=== PATIENT | male | born 1995 | race Caucasian/White ===

== ENCOUNTER → 2021-07-04 | Emergency (ER) | payer BC ==
[~2021-07-04] VITALS: Ht 172.7 cm; Wt 91.6 kg
[~2021-07-04] MED LIST: HYDROCODONE/APAP 5/325MG TABLET ONE; HYDROCODONE/APAP 5/325MG TABLET PO ONE; NAPR-1009 PO; ONDANSETRON 4 MG TAB.RAPDIS ONE; ONDANSETRON 4 MG TAB.RAPDIS SL ONE
--- NOTE | 2021-07-04 07:35 | NUR ---
BIBSELF C/O MID BACK PAIN S/P FELL OFF 3 STAIRS. -KO. AMBULATORY WITH BEARABLE PAIN. [id number]
--- NOTE | 2021-07-04 08:11 | NUR ---
DR TERAN AT BEDSIDE FOR EVAL
--- NOTE | 2021-07-04 08:23 | NUR ---
PT IS WHEELED TO CT SCAN VIA [facility].
--- NOTE | 2021-07-04 10:23 | NUR ---
Patient discharged to home in stable condition. Written and verbal after care instructions given. Patient verbalizes understanding of instruction.
[2021-07-04 10:24] VITALS: BP 140/80
== END | disposition home or self-care (01) ==
LOC: ER 07:12
DX: S39.92XA Unspecified injury of lower back, initial encounter (principal); S29.9XXA Unspecified injury of thorax, initial encounter; W10.8XXA Fall (on) (from) other stairs and steps, initial encounter; Y93.89 Activity, other specified; Y92.89 Other specified places as the place of occurrence of the external cause; Y99.8 Other external cause status
CPT/HCPCS: 72128; 72131; 99284; Q0162